=== PATIENT | male | born 1940 | race Caucasian/White ===

== ENCOUNTER → 2019-06-28 | Outpatient (REF) ==
[2019-06-28 10:27] LABS: HEMATOCRIT 30.3 % (42.0-52.0); HEMOGLOBIN 10.4 g/dl (13.5-17.5); MEAN CORPUSCULAR HEMOGLOBIN 30.6 pg (27.0-33.0); MEAN CORPUSCULAR HGB CONC 34.3 g/dl (32.0-36.5); MEAN CORPUSCULAR VOLUME 89.1 fl (80.0-96.0); PLATELET COUNT, AUTOMATED 281 10^3/uL (150-450); WHITE BLOOD COUNT 14.5 10^3/uL (4.0-10.0)
[2019-06-28 10:52] LABS: BLOOD UREA NITROGEN 15 MG/DL (7-18); CALCIUM LEVEL 8.8 MG/DL (8.8-10.2); CARBON DIOXIDE LEVEL 26 MEQ/L (21-32); CHLORIDE LEVEL 101 MEQ/L (98-107); CREATININE FOR GFR 1.07 MG/DL (0.70-1.30); FERRITIN 221 NG/ML (26-388); GLOMERULAR FILTRATION RATE > 60.0 (>42); GLUCOSE, FASTING 81 MG/DL (70-100); IRON (FE) 30 UG/DL (65-175); PERCENT SATURATION 11.5 % (19.7-50.0); POTASSIUM SERUM 4.5 MEQ/L (3.5-5.1); SODIUM LEVEL 136 MEQ/L (136-145); TOTAL IRON BINDING CAPACITY 262 UG/DL (250-450)
--- NOTE | 2019-06-28 15:42 | REP ---
Chest x-ray: AP view. History: Hypo atrium. No comparison chest x-ray. Findings: The patient is status post prior median sternotomy. Aorta is tortuous. Heart is not enlarged. The lungs are symmetrically aerated and free of infiltrate. Pleural angles are sharp. Impression: No active disease. Prior sternotomy. Electronically Signed by Edouard Rosales MD 06/28/2019 03:33 P
[2019-06-28 18:36] LABS: APPEARANCE, URINE CLOUDY (CLEAR); BACTERIA, URINE AUTO 1+ (NEGATIVE); BILIRUBIN, URINE AUTO NEGATIVE (NEGATIVE); BLOOD, URINE BLOOD 3+ (NEGATIVE); COLOR, URINE YELLOW (YELLOW); GLUCOSE, URINE (UA) AUTO NEGATIVE (NEGATIVE); KETONE, URINE AUTO NEGATIVE (NEGATIVE); LEUKOCYTE ESTERASE, URINE AUTO 3+ (NEGATIVE); NITRITE, URINE AUTO NEGATIVE (NEGATIVE); PROTEIN, URINE AUTO 1+ mg/dL (NEGATIVE); RBC, URINE AUTO TNTC /HPF (0-3); SPECIFIC GRAVITY URINE AUTO 1.009 (1.002-1.035); SQUAMOUS EPITHELIAL CELL UR AU 0 /HPF (0-6); UROBILINOGEN, URINE AUTO 0.2 mg/dL (0.0-2.0); WBC, URINE AUTO 155 /HPF (0-3)
== END ==
PROVIDERS: ATTEND Internal Medicine
DX: E87.1 Hypo-osmolality and hyponatremia (principal)

== ENCOUNTER → 2019-06-29 | Outpatient (REF) ==
[2019-06-29 14:29] LABS: HEMATOCRIT 28.5 % (42.0-52.0); HEMOGLOBIN 9.6 g/dl (13.5-17.5); MEAN CORPUSCULAR HEMOGLOBIN 30.4 pg (27.0-33.0); MEAN CORPUSCULAR HGB CONC 33.7 g/dl (32.0-36.5); MEAN CORPUSCULAR VOLUME 90.2 fl (80.0-96.0); PLATELET COUNT, AUTOMATED 264 10^3/uL (150-450); RED BLOOD COUNT 3.16 10^6/uL (4.30-6.10); WHITE BLOOD COUNT 14.2 10^3/uL (4.0-10.0)
[2019-06-29 14:56] LABS: BLOOD UREA NITROGEN 12 MG/DL (7-18); CALCIUM LEVEL 8.3 MG/DL (8.8-10.2); CARBON DIOXIDE LEVEL 24 MEQ/L (21-32); CHLORIDE LEVEL 99 MEQ/L (98-107); CREATININE FOR GFR 1.05 MG/DL (0.70-1.30); GLOMERULAR FILTRATION RATE > 60.0 (>42); GLUCOSE, FASTING 107 MG/DL (70-100); POTASSIUM SERUM 4.4 MEQ/L (3.5-5.1); SODIUM LEVEL 132 MEQ/L (136-145)
== END ==
PROVIDERS: ATTEND Internal Medicine
DX: R50.9 Fever, unspecified (principal)

== ENCOUNTER → 2019-07-02 | Outpatient (REF) ==
[2019-07-02 11:12] LABS: HEMATOCRIT 30.9 % (42.0-52.0); HEMOGLOBIN 10.4 g/dl (13.5-17.5); MEAN CORPUSCULAR HEMOGLOBIN 30.3 pg (27.0-33.0); MEAN CORPUSCULAR HGB CONC 33.7 g/dl (32.0-36.5); MEAN CORPUSCULAR VOLUME 90.1 fl (80.0-96.0); PLATELET COUNT, AUTOMATED 333 10^3/uL (150-450); RED BLOOD COUNT 3.43 10^6/uL (4.30-6.10); WHITE BLOOD COUNT 6.1 10^3/uL (4.0-10.0)
[2019-07-02 11:35] LABS: BLOOD UREA NITROGEN 10 MG/DL (7-18); CALCIUM LEVEL 8.4 MG/DL (8.8-10.2); CARBON DIOXIDE LEVEL 24 MEQ/L (21-32); CHLORIDE LEVEL 102 MEQ/L (98-107); CREATININE FOR GFR 1.01 MG/DL (0.70-1.30); GLOMERULAR FILTRATION RATE > 60.0 (>42); GLUCOSE, FASTING 83 MG/DL (70-100); POTASSIUM SERUM 4.8 MEQ/L (3.5-5.1); SODIUM LEVEL 136 MEQ/L (136-145)
== END ==
PROVIDERS: ATTEND Internal Medicine
DX: R50.9 Fever, unspecified (principal)

== ENCOUNTER → 2019-07-05 | Outpatient (REF) | payer MEDICARE ==
--- NOTE | 2019-07-05 12:06 | REP ---
Renal ultrasound for urinary retention and hydronephrosis: The right kidney measures 9.5 x 4.3 x 5.0 cm. Left kidney measures 10.6 by 5.0 x 5.1 cm. The kidneys are in the low normal size range. There is no hydronephrosis on the right on the left. There are no renal calculi. There are no renal solid masses. There is a 2.3 cm Bosniak type 1 exophytic right renal upper pole cyst. There is a 0.6 cm exophytic right renal upper pole cyst. There is a 2.9 cm exophytic left renal upper pole cyst. There is a 1.9 cm left renal lower pole cyst. All renal cysts appear to be Bosniak type 1 simple cysts. With Doppler assessment there are unable to identify ureteral jets into the bladder, however, there is no hydronephrosis. This may be from dehydration. Impression: There is no hydronephrosis. There are no renal calculi. There are bilateral renal simple cysts as described. Ureteral jets into the bladder are unable to be demonstrated. The Doppler ultrasound. This may be from dehydration. There is no hydronephrosis. Electronically Signed by Jay Bowers MD 07/05/2019 11:57 A
== END ==
LOC: M RAD 10:10 → EDSTATUS 10:30 → M RAD 12:41
PROVIDERS: ATTEND Physician Assistant
DX: R33.9 Retention of urine, unspecified (principal)

== ENCOUNTER → 2019-07-05 | Outpatient (REF) ==
--- NOTE | 2019-07-09 12:39 | NOCOX ---
DATE OF PROCEDURE: 07/05/2019 to 07/06/2019 The patient was on room air during the entire study. Resting oxygen saturation was 96% on room air. There were variable desaturations throughout the night without significant hypoxia. Oxygen saturation ranged 88-99%. The total time with an oxygen saturation less than 88% was recorded at 4 seconds. There is actually no significant hypoxia less than 90%. The total time with an oxygen saturation less than 96% was 24 seconds. Heart rate was variable, ranging from 59-118. IMPRESSION: No significant nocturnal hypoxia on room air.
== END ==
PROVIDERS: ATTEND Internal Medicine
DX: R09.02 Hypoxemia (principal)